=== PATIENT | male | born 1940 | race Caucasian/White ===

== ENCOUNTER 2016-12-29 09:46 | Inpatient (IN) | payer OTHER, BC ==
[~2016-12-29 09:46] MED LIST: ADVAIR HFA120 INHALA IH; ADVIL,NUPRIN,M200 MG PO; CEFDINIR300 MG PO; DIGOXIN125 MCG PO; FOSINOPRIL SODI20 MG PO; GLIMEPIRIDE4 MG PO; KETOCONAZOLE60 GM TP; LIPITOR80 MG PO; LOPRESSOR100 M1 PO; MUPIROCIN22 GM TP; PEPCID20 MG PO; PREDNISONE5 MG PO; SPIRIVA1 INHALATI IH; TRIAMTERENE-HC1 EAC1 PO; WARFARIN SODIU7.5 MG PO; XOPENEX HF200 INHALA IH
[2016-12-29 11:01] LABS: PTT 28.5 (25-32)
[2016-12-29 11:10] LABS: INTER. NORMALIZED RATIO 1.1; PROTHROMBIN TIME 11.2 (9.2-11.2)
[2016-12-29 17:54] VITALS: BP 140/67
[2016-12-29 22:24] LABS: POINT-OF-CARE METER ID UU14188577
[2016-12-29 23:10] VITALS: BP 111/59
[2016-12-30 03:53] VITALS: BP 98/62
[2016-12-30 05:46] LABS: HEMATOCRIT 44.1 % (38.0-50.0); MCH 31.2 PG (29.0-34.0); MCHC 32.9 G/DL (30.0-36.0); MCV 94.8 FL (86-99); RBC DIS.WIDTH-CV 13.5 % (11.8-14.6); RED BLOOD COUNT 4.65 M/uL (4.00-5.50); WHITE BLOOD COUNT 11.4 K/uL (4.1-10.2)
[2016-12-30 06:09] LABS: ANION GAP 7 MEQ/L (2-14); CHLORIDE 99 MEQ/L (99-109); GFR ESTIMATE (CALCULATED) > 59 mL/min/; GLUCOSE 101 mg/dL (70-99); SAMPLE HEMOLYSIS CHECK 0; SAMPLE ICTERIC CHECK 0; SAMPLE LIPEMIA CHECK 0; SODIUM 136 MEQ/L (136-147); UREA NITROGEN (BUN) 17 mg/dL (9-23)
[2016-12-30 06:21] LABS: MEAN PLAT.VOLUME 11.3 uM^3 (9.0-12.4); PLATELET COUNT 209 K/uL (156-360)
[2016-12-30 07:00] VITALS: BP 121/58
[2016-12-30 07:43] LABS: POINT-OF-CARE METER ID UU14149397
[2016-12-30 11:49] VITALS: BP 122/67
[2016-12-30 11:49] LABS: INTER. NORMALIZED RATIO 1.1; PROTHROMBIN TIME 11.4 (9.2-11.2)
[2016-12-30 12:14] LABS: POINT-OF-CARE METER ID UU14149397
[2016-12-30 16:07] VITALS: BP 103/53
[2016-12-30 16:49] LABS: POINT-OF-CARE METER ID UU14188577
[2016-12-30 19:49] VITALS: BP 132/68
[2016-12-30] MEDS ORDERED: LIPITOR40 MG PO (20:13)
[2016-12-30] MEDS ORDERED: LOPRESSOR100 M1 PO (20:14)
[2016-12-30] MEDS ORDERED: FOSINOPRIL SODI10 MG PO (20:15)
[2016-12-30] MEDS ORDERED: ADVAIR 250/501 DISK IH (20:20)
[2016-12-30] MEDS ORDERED: PEPCID AC10 MG PO (20:22)
[2016-12-30] MEDS ORDERED: MUCINEX600 MG PO (20:24)
[2016-12-30] MEDS ORDERED: VITAMIN D31000 UNI2 PO (20:25)
[2016-12-30] MEDS ORDERED: MAGNESIUM250 M1 PO (20:27)
[2016-12-30 21:33] LABS: POINT-OF-CARE METER ID UU14149397
[2016-12-30 23:14] VITALS: BP 110/70
[2016-12-31 04:21] VITALS: BP 116/66
[2016-12-31 06:46] LABS: HEMATOCRIT 47.4 % (38.0-50.0); MCH 30.7 PG (29.0-34.0); MCHC 32.5 G/DL (30.0-36.0); MCV 94.4 FL (86-99); MEAN PLAT.VOLUME 11.1 uM^3 (9.0-12.4); PLATELET COUNT 223 K/uL (156-360); RBC DIS.WIDTH-CV 13.3 % (11.8-14.6); RBC DIS.WIDTH-SD 46.5 % (39-53); RED BLOOD COUNT 5.02 M/uL (4.00-5.50); WHITE BLOOD COUNT 11.1 K/uL (4.1-10.2)
[2016-12-31 07:09] LABS: ANION GAP 8 MEQ/L (2-14); CHLORIDE 99 MEQ/L (99-109); GFR ESTIMATE (CALCULATED) > 59 mL/min/; GLUCOSE 92 mg/dL (70-99); INTER. NORMALIZED RATIO 1.1; POTASSIUM 4.6 MEQ/L (3.7-5.4); PROTHROMBIN TIME 11.4 (9.2-11.2); SAMPLE HEMOLYSIS CHECK 0; SAMPLE ICTERIC CHECK 0; SAMPLE LIPEMIA CHECK 0; SODIUM 138 MEQ/L (136-147); UREA NITROGEN (BUN) 16 mg/dL (9-23)
[2016-12-31 07:25] VITALS: BP 106/66
[2016-12-31 09:59] VITALS: BP 122/62
[2016-12-31 12:11] VITALS: BP 123/58
[2016-12-31 12:21] LABS: POINT-OF-CARE METER ID UU14149397
[2016-12-31 15:12] VITALS: BP 130/68
[2016-12-31 19:30] VITALS: BP 132/70
[2016-12-31 22:30] LABS: POINT-OF-CARE METER ID UU14188577
[2017-01-01 00:31] VITALS: BP 131/70; BP 87/49
[2017-01-01 04:03] VITALS: BP 117/70
[2017-01-01 06:26] LABS: HEMATOCRIT 43.8 % (38.0-50.0); MCH 30.6 PG (29.0-34.0); MCHC 32.6 G/DL (30.0-36.0); MCV 93.8 FL (86-99); MEAN PLAT.VOLUME 11.4 uM^3 (9.0-12.4); PLATELET COUNT 209 K/uL (156-360); RBC DIS.WIDTH-CV 13.3 % (11.8-14.6); RBC DIS.WIDTH-SD 45.7 % (39-53); RED BLOOD COUNT 4.67 M/uL (4.00-5.50); WHITE BLOOD COUNT 10.2 K/uL (4.1-10.2)
[2017-01-01 06:56] VITALS: BP 113/67
[2017-01-01 06:56] LABS: INTER. NORMALIZED RATIO 1.3; PROTHROMBIN TIME 13.1 (9.2-11.2)
[2017-01-01 07:33] LABS: ANION GAP 8 MEQ/L (2-14); CHLORIDE 98 MEQ/L (99-109); GFR ESTIMATE (CALCULATED) > 59 mL/min/; POTASSIUM 4.7 MEQ/L (3.7-5.4); SAMPLE HEMOLYSIS CHECK 0; SAMPLE ICTERIC CHECK 0; SAMPLE LIPEMIA CHECK 0; SODIUM 138 MEQ/L (136-147); UREA NITROGEN (BUN) 18 mg/dL (9-23)
[2017-01-01 07:36] LABS: GLUCOSE 147 mg/dL (70-99)
[2017-01-01 07:44] LABS: Estimated Average Glucose 206 mg/dL (70-123); HEMOGLOBIN A1c (GLYCOHEMOGLOB) 8.8 % HGB (Below 5.7)
[2017-01-01 07:47] LABS: POINT-OF-CARE METER ID UU14149397
[2017-01-01 11:20] VITALS: BP 109/59
[2017-01-01 11:47] LABS: POINT-OF-CARE METER ID UU14188577
[2017-01-01 15:42] VITALS: BP 108/58
[2017-01-01 17:01] LABS: POINT-OF-CARE METER ID UU14188577
[2017-01-01 23:27] VITALS: BP 100/66
[2017-01-02 03:43] VITALS: BP 104/57
[2017-01-02 06:22] LABS: POINT-OF-CARE METER ID UU14188577
[2017-01-02 08:12] VITALS: BP 132/74
[2017-01-02 08:42] LABS: HEMATOCRIT 44.4 % (38.0-50.0); MCH 31.2 PG (29.0-34.0); MCHC 32.9 G/DL (30.0-36.0); MCV 94.9 FL (86-99); MEAN PLAT.VOLUME 11.1 uM^3 (9.0-12.4); PLATELET COUNT 211 K/uL (156-360); RBC DIS.WIDTH-CV 13.6 % (11.8-14.6); RBC DIS.WIDTH-SD 47.4 % (39-53); RED BLOOD COUNT 4.68 M/uL (4.00-5.50); WHITE BLOOD COUNT 10.9 K/uL (4.1-10.2)
[2017-01-02 09:04] LABS: ANION GAP 8 MEQ/L (2-14); CHLORIDE 99 MEQ/L (99-109); GFR ESTIMATE (CALCULATED) > 59 mL/min/; GLUCOSE 161 mg/dL (70-99); POTASSIUM 4.2 MEQ/L (3.7-5.4); SAMPLE HEMOLYSIS CHECK 0; SAMPLE ICTERIC CHECK 0; SAMPLE LIPEMIA CHECK 0; SODIUM 136 MEQ/L (136-147); UREA NITROGEN (BUN) 19 mg/dL (9-23)
[2017-01-02 09:31] LABS: INTER. NORMALIZED RATIO 1.6; PROTHROMBIN TIME 16.2 (9.2-11.2)
[2017-01-02 11:48] VITALS: BP 121/62
[2017-01-02 20:02] VITALS: BP 116/76
[2017-01-03] VITALS (7 sets, daily range): BP systolic 109–152; BP diastolic 57–88
[2017-01-03 07:06] LABS: HEMATOCRIT 40.8 % (38.0-50.0); MCH 31.1 PG (29.0-34.0); MCHC 32.8 G/DL (30.0-36.0); MCV 94.7 FL (86-99); RBC DIS.WIDTH-CV 13.6 % (11.8-14.6); RED BLOOD COUNT 4.31 M/uL (4.00-5.50); WHITE BLOOD COUNT 8.6 K/uL (4.1-10.2)
[2017-01-03 07:18] LABS: INTER. NORMALIZED RATIO 1.8; PROTHROMBIN TIME 18.7 (9.2-11.2)
[2017-01-03 07:34] LABS: ANION GAP 6 MEQ/L (2-14); CHLORIDE 103 MEQ/L (99-109); GFR ESTIMATE (CALCULATED) > 59 mL/min/; GLUCOSE 197 mg/dL (70-99); POTASSIUM 4.2 MEQ/L (3.7-5.4); SAMPLE HEMOLYSIS CHECK 0; SAMPLE ICTERIC CHECK 0; SAMPLE LIPEMIA CHECK 0; SODIUM 139 MEQ/L (136-147); UREA NITROGEN (BUN) 18 mg/dL (9-23)
[2017-01-03 07:46] LABS: POINT-OF-CARE METER ID UU14149397
[2017-01-03 08:18] LABS: MEAN PLAT.VOLUME 11.3 uM^3 (9.0-12.4); PLATELET COUNT 198 K/uL (156-360)
[2017-01-03 11:34] LABS: POINT-OF-CARE METER ID UU14149397
[2017-01-03 16:33] LABS: POINT-OF-CARE METER ID UU14149397
[2017-01-03 22:30] LABS: POINT-OF-CARE METER ID UU14188577
[2017-01-04 04:26] VITALS: BP 116/60
[2017-01-04 07:08] VITALS: BP 116/69
[2017-01-04] MEDS ORDERED: NICOTINE PATCH1 EAC2 TD (08:18)
[2017-01-04] MEDS ORDERED: COUMADIN5 MG PO (08:18)
== END 2017-01-04 09:45 | disposition home or self-care (01) | DRG 200 ==
LOC: OPR 09:46 → 2SOUTH 15:35 → 3EAST 15:35
PROVIDERS: Hospitalist; Internal Medicine; Nurse Practitioner Family
DX: J95.811 Postprocedural pneumothorax (principal); C34.92 Malignant neoplasm of unspecified part of left bronchus or lung; E46 Unspecified protein-calorie malnutrition; I48.2 Chronic atrial fibrillation; N28.1 Cyst of kidney, acquired; J44.9 Chronic obstructive pulmonary disease, unspecified; I95.2 Hypotension due to drugs; I10 Essential (primary) hypertension; E11.9 Type 2 diabetes mellitus without complications; F17.200 Nicotine dependence, unspecified, uncomplicated; K57.30 Diverticulosis of large intestine without perforation or abscess without bleeding; E78.2 Mixed hyperlipidemia; K80.20 Calculus of gallbladder without cholecystitis without obstruction
CPT/HCPCS: 32560; 71010; 71260; 74177; 77012; 80048; 82948; 83036; 85027; 85610; 85730; 88305; 88341 TC; 88342 TC; 94640; 94640 76; 94799; 99202; C1729; G0378; J1815; J3010

== ENCOUNTER 2017-04-05 21:21 | Inpatient (IN) | payer OTHER, BC ==
[~2017-04-05] VITALS: Ht 177.8 cm; Wt 60.1 kg
[~2017-04-05 21:21] MED LIST changes: +ADVAIR 250/501 DISK IH; +COUMADIN5 MG PO; +FOSINOPRIL SODI10 MG PO; +LIPITOR40 MG PO; +MAGNESIUM250 M1 PO; +MUCINEX600 MG PO; +NICOTINE PATCH1 EAC2 TD; +PEPCID AC10 MG PO; +VITAMIN D31000 UNI2 PO
[2017-04-05 22:17] LABS: HEMATOCRIT 41.6 % (38.0-50.0); MCH 31.5 PG (29.0-34.0); MCHC 33.2 G/DL (30.0-36.0); RBC DIS.WIDTH-CV 17.1 % (11.8-14.6); RBC DIS.WIDTH-SD 57.7 % (39-53); RED BLOOD COUNT 4.38 M/uL (4.00-5.50)
[2017-04-05 22:21] LABS: PLATELET COUNT 244 K/uL (156-360)
[2017-04-05 22:30] LABS: PROTHROMBIN TIME 138.6 (9.2-11.2); PTT 69.6 (25-32)
[2017-04-05 22:31] LABS: CHLORIDE 99 mEq/L (99-109); POTASSIUM 4.1 mEq/L (3.7-5.4); SODIUM 140 mEq/L (136-147)
[2017-04-05 22:33] LABS: GLUCOSE 221 mg/dL (70-99)
[2017-04-05 22:34] LABS: ANION GAP 10 MEQ/L (2-14)
[2017-04-05 22:37] LABS: GFR ESTIMATE (CALCULATED) > 59 mL/min/
[2017-04-05 22:38] LABS: UREA NITROGEN (BUN) 20 mg/dL (9-23)
[2017-04-05 22:39] LABS: INTER. NORMALIZED RATIO 12.6
[2017-04-05 22:45] LABS: TROP-I INTERPRETATION NEGATIVE; TROPONIN-I < 0.01 ng/mL (0.0-0.30)
[2017-04-05] MEDS ORDERED: COMPAZINE10 MG PO (23:40)
[2017-04-05] MEDS ORDERED: FLONASE16 G1 BOTH NARES (23:40)
[2017-04-05] MEDS ORDERED: OXYCODONE HCL5 MG PO (23:40)
[2017-04-05] MEDS ORDERED: VENTOLIN HFA18 GM IH (23:41)
[2017-04-06 05:09] VITALS: BP 111/73
[2017-04-06 06:02] LABS: HEMATOCRIT 40.3 % (38.0-50.0); MCH 30.9 PG (29.0-34.0); MCHC 32.3 G/DL (30.0-36.0); MCV 95.7 FL (86-99); MEAN PLAT.VOLUME 11.2 uM^3 (9.0-12.4); PLATELET COUNT 239 K/uL (156-360); RBC DIS.WIDTH-CV 17.2 % (11.8-14.6); RBC DIS.WIDTH-SD 57.7 % (39-53); RED BLOOD COUNT 4.21 M/uL (4.00-5.50); WHITE BLOOD COUNT 5.7 K/uL (4.1-10.2)
[2017-04-06 06:46] LABS: PROTHROMBIN TIME 75.4 (9.2-11.2)
[2017-04-06 07:49] LABS: POINT-OF-CARE METER ID UU13113698
[2017-04-06 07:53] LABS: ANION GAP 9 MEQ/L (2-14); CHLORIDE 102 MEQ/L (99-109); GFR ESTIMATE (CALCULATED) > 59 mL/min/; GLUCOSE 160 mg/dL (70-99); POTASSIUM 3.6 MEQ/L (3.7-5.4); SAMPLE HEMOLYSIS CHECK 0; SAMPLE ICTERIC CHECK 0; SAMPLE LIPEMIA CHECK 0; SODIUM 141 MEQ/L (136-147); UREA NITROGEN (BUN) 17 mg/dL (9-23)
[2017-04-06 10:07] VITALS: BP 128/72
[2017-04-06 13:23] VITALS: BP 112/67
[2017-04-06 16:59] VITALS: BP 110/80
[2017-04-06 17:07] LABS: POINT-OF-CARE METER ID UU13113781
[2017-04-06 19:50] VITALS: BP 120/70
[2017-04-06 23:30] VITALS: BP 130/66
[2017-04-07 04:00] VITALS: BP 116/65
[2017-04-07 05:48] LABS: INTER. NORMALIZED RATIO 1.4; PROTHROMBIN TIME 14.6 (9.2-11.2); PTT 31.4 (25-32)
[2017-04-07 07:24] VITALS: BP 128/76
[2017-04-07 07:26] LABS: POINT-OF-CARE METER ID UU14174216
[2017-04-07 11:07] VITALS: BP 99/69
[2017-04-07 14:51] VITALS: BP 135/82
[2017-04-07 16:26] LABS: POINT-OF-CARE METER ID UU14174216
[2017-04-07 19:45] VITALS: BP 100/65
[2017-04-07 21:18] LABS: POINT-OF-CARE METER ID UU14174216
[2017-04-07 23:53] VITALS: BP 116/65
[2017-04-08 04:47] VITALS: BP 108/59
[2017-04-08 07:28] LABS: INTER. NORMALIZED RATIO 1.3
[2017-04-08 07:36] LABS: POINT-OF-CARE METER ID UU14174216; POINT-OF-CARE USER ID NUTSLF44
[2017-04-08 09:00] VITALS: BP 96/65
[2017-04-08 12:00] VITALS: BP 118/90
[2017-04-08 16:00] VITALS: BP 132/74
[2017-04-08 19:10] VITALS: BP 115/74
[2017-04-09 02:00] VITALS: BP 97/66
[2017-04-09 04:30] VITALS: BP 109/65
[2017-04-09 06:16] LABS: INTER. NORMALIZED RATIO 1.6; PROTHROMBIN TIME 16.7 (9.2-11.2)
[2017-04-09 07:36] VITALS: BP 132/85
[2017-04-09 11:26] VITALS: BP 114/64
[2017-04-09 15:16] VITALS: BP 98/72
[2017-04-09 21:35] VITALS: BP 110/64
[2017-04-10 00:25] VITALS: BP 102/65
[2017-04-10 03:39] VITALS: BP 102/70
[2017-04-10 04:20] LABS: HEMATOCRIT 36.5 % (38.0-50.0); MCH 31.8 PG (29.0-34.0); MCHC 33.2 G/DL (30.0-36.0); MCV 95.8 FL (86-99); MEAN PLAT.VOLUME 10.9 uM^3 (9.0-12.4); PLATELET COUNT 176 K/uL (156-360); RBC DIS.WIDTH-CV 17.3 % (11.8-14.6); RBC DIS.WIDTH-SD 59.7 % (39-53); RED BLOOD COUNT 3.81 M/uL (4.00-5.50); WHITE BLOOD COUNT 6.9 K/uL (4.1-10.2)
[2017-04-10 04:30] LABS: PROTHROMBIN TIME 21.1 (9.2-11.2)
[2017-04-10 04:30] LABS: CHLORIDE 106 mEq/L (99-109); POTASSIUM 3.7 mEq/L (3.7-5.4); SODIUM 140 mEq/L (136-147)
[2017-04-10 04:31] LABS: MAGNESIUM 1.4 mg/dL (1.3-2.7)
[2017-04-10 04:32] LABS: GLUCOSE 168 mg/dL (70-99)
[2017-04-10 04:34] LABS: ANION GAP 7 MEQ/L (2-14)
[2017-04-10 04:36] LABS: GFR ESTIMATE (CALCULATED) > 59 mL/min/
[2017-04-10 04:37] LABS: UREA NITROGEN (BUN) 15 mg/dL (9-23)
[2017-04-10 06:48] LABS: POINT-OF-CARE METER ID UU13113698
[2017-04-10 08:59] VITALS: BP 111/66
[2017-04-10 11:27] VITALS: BP 117/58
[2017-04-10] MEDS ORDERED: COUMADIN3 MG PO (14:39)
[2017-04-10] MEDS ORDERED: DIGOXIN125 MCG PO (14:39)
[2017-04-10] MEDS ORDERED: MYCOSTATIN 100,60 ML PO (14:39)
[2017-04-10] MEDS ORDERED: NICOTINE PATCH1 EAC2 TD (14:39)
== END 2017-04-10 15:49 | disposition home or self-care (01) | DRG 309 ==
LOC: EME 21:21 → 4EAST 04-06 00:10 → EDOF 04-06 00:10 → 4EAST 04-06 04:54
PROVIDERS: Emergency Medicine; Hospitalist; Internal Medicine
DX: I48.2 Chronic atrial fibrillation (principal); R79.1 Abnormal coagulation profile; T45.515A Adverse effect of anticoagulants, initial encounter; Z91.19 Patient's noncompliance with other medical treatment and regimen; C34.90 Malignant neoplasm of unspecified part of unspecified bronchus or lung; E46 Unspecified protein-calorie malnutrition; Z68.1 Body mass index [BMI] 19.9 or less, adult; J44.1 Chronic obstructive pulmonary disease with (acute) exacerbation; T21.03XA Burn of unspecified degree of upper back, initial encounter; Y84.2 Radiological procedure and radiotherapy as the cause of abnormal reaction of the patient, or of later complication, without mention of misadventure at the time of the procedure; R63.4 Abnormal weight loss; E86.0 Dehydration; B37.0 Candidal stomatitis; E11.9 Type 2 diabetes mellitus without complications; G47.33 Obstructive sleep apnea (adult) (pediatric); R13.10 Dysphagia, unspecified; I45.10 Unspecified right bundle-branch block; I10 Essential (primary) hypertension; K21.9 Gastro-esophageal reflux disease without esophagitis; E78.5 Hyperlipidemia, unspecified; F17.210 Nicotine dependence, cigarettes, uncomplicated; G43.909 Migraine, unspecified, not intractable, without status migrainosus; F32.9 Major depressive disorder, single episode, unspecified; Z79.01 Long term (current) use of anticoagulants; Z82.49 Family history of ischemic heart disease and other diseases of the circulatory system; Z85.828 Personal history of other malignant neoplasm of skin; Z92.21 Personal history of antineoplastic chemotherapy; Z92.3 Personal history of irradiation
CPT/HCPCS: 36415; 71010; 80048; 82948; 83735; 84484; 85027; 85610; 85730; 86900; 86901; 93005; 94640; 94640 76; 99202; 99281; 99285; J1650; J1815; J7030; J7050